=== PATIENT | male | born 1995 | race African-American/Black ===

== ENCOUNTER 2016-12-13 15:48 | Emergency (ER) | payer MEDICAID, OTHER ==
[~2016-12-13] VITALS: Ht 177.8 cm; Wt 70.0 kg
[2016-12-13 15:50] VITALS: BP 144/55; PULSE 124; RESP 20; TEMP 101.9; O2SAT 93
[2016-12-13 15:54] VITALS: BP 144/65; PULSE 109; RESP 18; TEMP 102.3; O2SAT 97
--- NOTE | 2016-12-13 15:54 | PD ---
HPI Chief Complaint: cold/flu symptoms Time Seen by Provider: 16:12 Travel History International Travel<30 days: No Contact w/Intl Traveler<30days: No History of Present Illness HPI 21-year-old male with PMH of asthma presents to the ED for evaluation of 36 hour history of body aches, malaise, fevers, chills, nonproductive cough, nausea and vomiting. Patient states symptoms started upon waking yesterday. He states he was able to go to class but felt feverish, went home, took ibuprofen and fell asleep. He estimates for 4 episodes of vomiting, endorses nausea on presentation. He denies ear pain, headache, sore throat, abdominal pain, changes in bowel habits, back or neck pain. He is unsure if he received this years flu vaccine. He utilized his inhaler yesterday secondary to cough. Denies other chronic health problems. Takes no daily medications. NKDA. PFSH Social History Alcohol Use: Yes (occasional) Tobacco Use: No Substance Use: Yes (occasional marijuana) Allergies-Medications (Allergen,Severity, Reaction): Uncoded Allergies: INSECT BITES (Allergy, Intermediate, 12/13/16) Reported Meds & Prescriptions Reported Meds & Active Scripts Active Ibuprofen 600 Mg Tab 600 Mg PO Q8HR Medrol Dosepak (Methylprednisolone) 4 Mg Dspk 4 Mg PO DIRECTED Per Pharmacist direction Zofran Odt (Ondansetron Odt) 4 Mg Tab 4 Mg SL Q8HR PRN Tamiflu (Oseltamivir Phosphate) 75 Mg Cap 75 Mg PO BID Reported [Inhaler] 2 Puff DIRECTED Review of Systems Except as stated in HPI: all other systems reviewed are Neg Physical Exam Narrative GENERAL: Well-nourished, well-developed athletic black male in no acute distress. SKIN: Warm and dry. HEAD: Normocephalic. Atraumatic. EYES: No scleral icterus. No injection or drainage. PERRLA. EOMI. ENT: Pearly chapin tympanic membranes bilaterally. Nasal mucosa is moist. Oropharynx without erythema, edema or exudate. Uvula midline. Airway patent. NECK: Supple, trachea midline. No JVD or lymphadenopathy. No meningeal signs. CARDIOVASCULAR: Regular rate and rhythm without murmurs, gallops, or rubs. No carotid bruits. 2+ DP and radial pulses bilaterally. RESPIRATORY: Breath sounds equal bilaterally. Diffuse wheezing throughout all lung simental. No accessory muscle use. GASTROINTESTINAL: Abdomen soft, non-tender, nondistended. + Bowel sounds MUSCULOSKELETAL: No cyanosis, or edema. The patient is ambulatory and moves extremities spontaneously. BACK: Nontender without obvious deformity. No CVA tenderness. Data Data Last Documented VS Vital Signs Date Time Temp Pulse Resp B/P Pulse Ox O2 Delivery O2 Flow Rate FiO2 12/13/16 17:38 99.6 105 18 115/75 99 12/13/16 17:10 Room Air Orders Influenzae A/B Antigen (12/13/16 16:01) Iv Access Insert/Monitor (12/13/16 16:01) Ecg Monitoring (12/13/16 16:01) Oximetry (12/13/16 16:01) Sodium Chloride 0.9% Flush (Ns Flush) (12/13/16 16:15) Albuterol-Ipratropium Neb (Duoneb Neb) (12/13/16 16:15) Dexamethasone Inj (Decadron Inj) (12/13/16 16:15) Group A Rapid Strep Screen (12/13/16 16:01) Ondansetron Inj (Zofran Inj) (12/13/16 16:15) Acetaminophen (Tylenol) (12/13/16 16:15) Complete Blood Count With Diff (12/13/16 16:01) Basic Metabolic Panel (Bmp) (12/13/16 16:01) Sodium Chlor 0.9% 1000 Ml Inj (Ns 1000 M (12/13/16 16:15) Strep Culture (Group A) (12/13/16 16:07) Labs Laboratory Tests Test 12/13/16 16:07 White Blood Count 6.5 TH/MM3 Red Blood Count 5.12 MIL/MM3 Hemoglobin 14.5 GM/DL Hematocrit 43.3 % Mean Corpuscular Volume 84.5 FL Mean Corpuscular Hemoglobin 28.2 PG Mean Corpuscular Hemoglobin 33.4 % Concent Red Cell Distribution Width 11.9 % Platelet Count 122 TH/MM3 Mean Platelet Volume 10.9 FL Neutrophils (%) (Auto) 76.3 % Lymphocytes (%) (Auto) 11.5 % Monocytes (%) (Auto) 11.5 % Eosinophils (%) (Auto) 0.2 % Basophils (%) (Auto) 0.5 % Neutrophils # (Auto) 5.0 TH/MM3 Lymphocytes # (Auto) 0.7 TH/MM3 Monocytes # (Auto) 0.8 TH/MM3 Eosinophils # (Auto) 0.0 TH/MM3 Basophils # (Auto) 0.0 TH/MM3 CBC Comment DIFF FINAL Differential Comment Sodium Level 141 MEQ/L Potassium Level 3.8 MEQ/L Chloride Level 109 MEQ/L Carbon Dioxide Level 27.1 MEQ/L Anion Gap 5 MEQ/L Blood Urea Nitrogen 7 MG/DL Creatinine 1.40 MG/DL Estimat Glomerular Filtration 78 ML/MIN Rate Random Glucose 82 MG/DL Calcium Level 8.7 MG/DL MDM Medical Decision Making Medical Screen Exam Complete: Yes Emergency Medical Condition: Yes Differential Diagnosis Influenza versus asthma exacerbation versus viral illness versus gastritis versus strep pharyngitis versus other Narrative Course 21-year-old male with history of asthma presents to the ED for evaluation of 36 hour history of body aches, malaise, fevers, chills, nonproductive cough, nausea and vomiting. Denies headache, ear pain, sore throat, sinus congestion, abdominal pain, back or neck pain. Unsure if he received this years influenza vaccination. Vitals reviewed. Patient is febrile, hypertensive and tachycardic on presentation. The patient is nontoxic appearing despite his vitals. There is diffuse wheezing in bilateral lung simental but the physical exam is otherwise unremarkable. Suspect influenza. Patient was placed on continuous monitoring, IV was established. Rapid strep and influenza samples were acquired. He was administered Tylenol, Zofran, a liter of normal saline, IM steroids and duonebs 3. CBC: No leukocytosis or anemia. BMP: No concerning abnormalities. Influenza: Positive Rapid strep swab: Negative, culture pending. I discussed the patient, results of the workup and plan of care with Dr. Kennedy who agrees. Recheck of the patient reveals improvement of his symptoms. Wheezing improved but still audible. Patient was prescribed Tamiflu, ibuprofen , Zofran and Medrol Dosepak. Patient is instructed to rest, hydrate, take medications as prescribed, follow up with the school clinic. He was provided an excuse for classes, instructed to return for worsening symptoms. He indicated understanding of instructions, is amenable to the plan of care, is stable and discharged home. Diagnosis Primary Impression: Influenza A Additional Impressions: Nausea & vomiting Qualified Code: R11.2 - Non-intractable vomiting with nausea, unspecified vomiting type Asthma exacerbation Referrals: Primary Care Physician Patient Instructions: General Instructions, Influenza (ED) Departure Forms: School Release, Return to School Date: Dec 17, 2016 Please excuse from school until (free text option): Please excuse patient from classes until 12/18. Please allow him to make up any work or exams missed during his illness. Tests/Procedures Additional Instructions: Rest, HYDRATE. Take Tamiflu as prescribed. Zofran every 6-8 hours as needed for nausea and vomiting. Ibuprofen as needed for fever and body aches. Begin Medrol Dosepak TOMORROW. Continue with symptomatic treatment as needed. Follow-up with the primary care provider this week. Return to the ED for any urgent or emergent medical condition. Med/Other Pt SpecificInfo: Prescription(s) given Scripts Ibuprofen 600 Mg Ped091 Mg PO Q8HR #15 TAB Ref 0 Prov:Lisa Kennedy DO 12/13/16 Methylprednisolone Dosepak (Medrol Dosepak)4 Mg Dspk4 Mg PO DIRECTED #1 DSPK Ref 0 Per Pharmacist direction Prov:Lisa Kennedy DO 12/13/16 Ondansetron Odt (Zofran Odt)4 Mg Tab4 Mg SL Q8HR PRN (Nausea/Vomiting) #6 TAB Ref 0 Prov:Lisa Kennedy DO 12/13/16 Oseltamivir (Tamiflu)75 Mg Cap75 Mg PO BID #14 CAP Ref 0 Prov:Lisa Kennedy DO 12/13/16 Disposition: 01 DISCHARGE HOME Condition: Stable Kinza Simmons Dec 13, 2016 15:54
[2016-12-13] MEDS ORDERED: INHALER (16:00)
[2016-12-13 16:13] VITALS: O2SAT 99
[2016-12-13] MEDS ORDERED: ONDANSETRON HCL 4 MG/2 ML VIAL IV PUSH ONE (16:15)
[2016-12-13] MEDS ORDERED: SODIUM CHLORIDE 0.9% FLUSH 5 ML FLUSH IVF PRN (16:15)
[2016-12-13] MEDS ORDERED: SODIUM CHLOR 0.9% 1000 ML INJ 1,000 ML IV ONE (16:15)
[2016-12-13] MEDS ORDERED: ACETAMINOPHEN 325 MG TAB PO ONE (16:15)
[2016-12-13] MEDS ORDERED: DEXAMETHASONE SOD PHOS 4 MG/ML VIAL IM ONE (16:15)
[2016-12-13 16:20] LABS: BASOPHIL % 0.5 % (0.0-2.0); EOSINOPHIL % 0.2 % (0.0-4.0); HEMATOCRIT 43.3 % (39.0-51.0); HEMO FLAGS DIFF FINAL; LYMPH % 11.5 % (9.0-44.0); LYMPHOCYTE # 0.7 TH/MM3 (1.0-4.8); MEAN CELL VOLUME 84.5 FL (80.0-100.0); MEAN CORPUSCULAR HEMOGLOBIN 28.2 PG (27.0-34.0); MEAN CORPUSCULAR HGB CONC 33.4 % (32.0-36.0); MONO % 11.5 % (0.0-8.0); NEUT % 76.3 % (16.0-70.0); PLATELET COUNT 122 TH/MM3 (150-450); RED BLOOD COUNT 5.12 MIL/MM3 (4.50-5.90); RED CELL DISTRIBUTION WIDTH 11.9 % (11.6-17.2); WHITE BLOOD COUNT 6.5 TH/MM3 (4.0-11.0)
[2016-12-13 16:35] LABS: BICARBONATE 27.1 MEQ/L (21.0-32.0); POTASSIUM 3.8 MEQ/L (3.5-5.1)
[2016-12-13] MEDS ORDERED: OSEL75 PO (16:35)
[2016-12-13] MEDS ORDERED: ZOFR4TAB3 SL (16:35)
[2016-12-13] MEDS: RESP: ALBUTEROL 2.5 MG/IPRATROPIUM 0.5 MG NEB (SCH) INH ×2 (16:46→16:47)
[2016-12-13 17:10] VITALS: BP 115/75; PULSE 113; RESP 20; TEMP 99.9; O2SAT 99
[2016-12-13] MEDS ORDERED: MEDR4PAK PO (17:34)
[2016-12-13] MEDS ORDERED: IBUP-232 PO (17:34)
[2016-12-13 17:38] VITALS: BP 115/75; TEMP 99.6
== END 2016-12-13 17:50 | disposition home or self-care (01) ==
LOC: NEPA 15:48
DX: J09.X2 Influenza due to identified novel influenza A virus with other respiratory manifestations (principal); J45.901 Unspecified asthma with (acute) exacerbation; R11.2 Nausea with vomiting, unspecified
CPT/HCPCS: 80048; 85025; 87081; 87804; 87880; 94640; 94664; 96361; 96372; 96374; 99284; J1100; J2405; J7030